=== PATIENT | male | born 1950 | race Caucasian/White ===

== ENCOUNTER → 2016-07-10 | Outpatient (CLI) | payer BC, OTHER ==
[2016-03-19 14:32] VITALS: BP 107/55
--- NOTE | 2016-07-11 07:35 | RAD ---
HISTORY: Malignant neoplasm sigmoid colon Study: Skeletal survey Comparison: None Findings: The bones are generally well mineralized. No spinal compression fractures are identified. No definit e lytic or blastic lesions are identified. There is no evidence for endosteal scalloping in the clav icles, ribs, or long bones. No lytic or blastic calvarial lesions are identified. There is a caval f ilter present. IMPRESSION: No definite evidence for visible lytic or blastic bony metastatic disease. Nuclear medicine bone sca n may be of further diagnostic value. Reported By:
== END ==
LOC: RAD 10:44
PROVIDERS: ATTEND Internal Medicine Hematology & Oncology
DX: R31.9 Hematuria, unspecified (principal); I26.99 Other pulmonary embolism without acute cor pulmonale; D50.8 Other iron deficiency anemias; C18.7 Malignant neoplasm of sigmoid colon
CPT/HCPCS: 77075

== ENCOUNTER 2016-12-20 14:15 | Emergency (ER) | payer BC, OTHER ==
[2016-12-20 14:26] VITALS: BP 111/59; BMI 43.1
[2016-12-20] MEDS ORDERED: ZOFRAN TAB 4 MG PO ONE (14:35)
[2016-12-20] MEDS ORDERED: ZOFRAN TAB 4 MG ONE (14:36)
--- NOTE | 2016-12-20 14:36 | DR.CP ---
HPI - Time Seen Time seen: 14:25 - Complaint Chief Complaint Doctor Comments: Patient states that he was outside cutting the yard, had an episode of chest zelaya very short duration. Later on had tingling in the left upper extremity. He had a bladder scraping procedure to remove a lesion one week ago. Admits to hematuria. Chief Complaint:: "CHEST PAIN THIS AM THAT STOPPED WITHIN A COUPLE OF HOURS HAS HAD WEEKNESS FOR TWO WEEKS NOW AND PEEING BLOOD" - Source History Provided: Patient - Mode of Arrival Mode of Arrival: EMS - Timing Onset of Chief Complaint: 12/10/16 - Associated Signs and Symptoms Associated Signs and Symptoms: Shortness of Breath PMH - PMH Past Medical History: Yes Past Medical History: GERD Past Medical History Comment: CANCER Past Surgical History: Yes Surgical History: Ortho Surgery Past Surgical History Comment: RADHA IN LEFT LEG, COLON CANCER, CLOSTOMY REVERSED , ABDOMEN SURGERY - Family History History of Family Medical Conditions: Yes Family Medical History: Coronary Artery Disease, Heart Failure - Social History Does patient currently use any type of tobacco product: No Have you used tobacco products in the last 12 months: No Type of Tobacco Use: Cigarettes How many years tobacco product used: 50 Does any household member use tobacco: No Alcohol Use: None Do you use any recreational Drugs:: No Lives With: Family Lives Where: Home - infectious screening In the last 2 months have you had wt loss of >10#?: NO Have you had fever, night sweats or hemotysis?: No Have you traveled outside the country in the last 6 months?: No Isolation: Standard ROS - Review of Systems Eyes: No Symptoms Reported ENTM: No Symptoms Reported Respiratoy: No Symptoms Reported Cardiovascular: No Symptoms Reported Gastrointestinal/Abdominal: No Symptoms Reported Genitourinary: No Symptoms Reported Neurological: No Symptoms Reported Musculoskeletal: No Symptoms Reported Integumentary: No Symptoms Reported Hematologic/Lymphatic: No Symptoms Reported Endocrine: No Symptoms Reported Psychiatric: No Symptoms Reported All Other Systems: Reviewed and Negative PE - Vitals Vitals: Temperature 97.6 F Pulse Rate 72 Respiratory Rate 18 Blood Pressure [Left Arm] 145/91 Blood Pressure 111/59 O2 Sat by Pulse Oximetry 100 - General Limitations: No Limitations General Appearance: Alert, In No Apparent Distress - Head Head Exam: Normal Inspection, Atraumatic - Eyes Eye exam: Normal Appearance, PERRL, EOMI - ENT ENT Exam: Normal Exam - Chest Chest Inspection: Normal Inspection - Respiratory Respiratory Exam: Normal Lung Sounds Bilat Respiratory Exam: Bilateral Clear to Auscultation - Cardiovascular Cardiovascular Exam: Regular Rate Pulse: Normal, Radial, Femoral Edema: Normal - Abdominal Exam Abdominal Exam: Normal Inspection Abdominal Tenderness: negative: RUQ, RLQ, LUQ, LLQ, Epigastrium, Suprapubic, Diffuse, Mild, Moderate, Severe, Other - Extremities Extremities Exam: Normal Inspection - Back Back Exam: Normal Inspection, Full ROM - Neurologic Neurological Exam: Alert, Oriented X3, CN II-XII Intact - Psychiatric Psychiatric Exam: Normal Affect - Skin Skin Exam: Warm, Dry, Intact Course - Reevaluation 1st: Improved ROR - Labs Reviewed Result Diagrams: 12/20/16 14:44 12/20/16 14:44 Laboratory: WBC 9.4 X10^3/uL (3.6-10.0) 12/20/16 14:44 RBC 3.24 X10^6/uL (4.7-6.0) L 12/20/16 14:44 Hgb 9.3 g/dL (13.5-18.0) L 12/20/16 14:44 Hct 27.5 % (42.0-54.0) L 12/20/16 14:44 MCV 84.7 fL (80.0-100.0) 12/20/16 14:44 MCH 28.8 pg (27.0-34.0) 12/20/16 14:44 MCHC 34.0 g/dL (33.0-35.0) 12/20/16 14:44 RDW 14.0 % (11.6-16.5) 12/20/16 14:44 Plt Count 256 X10^3/uL (150.0-450.0) 12/20/16 14:44 MPV 9.2 fL (7.4-11.0) 12/20/16 14:44 Neut % 71.9 % (42.0-75.0) 12/20/16 14:44 Lymph % 17.5 % (21.0-51.0) L 12/20/16 14:44 [place] % 6.6 % (0.0-13.0) 12/20/16 14:44 Eos % 2.7 % (0.9-2.9) 12/20/16 14:44 Baso % 1.3 % (0.2-1.0) H 12/20/16 14:44 Neut # 6.8 x10^3/uL (2.2-4.8) H 12/20/16 14:44 Lymph # 1.7 X10^3/uL (1.3-2.9) 12/20/16 14:44 [place] # 0.6 x10^3/uL (0.3-0.8) 12/20/16 14:44 Eos # 0.3 x10^3/uL (0.0-0.2) H 12/20/16 14:44 Baso # 0.1 X10^3/uL (0.0-0.1) 12/20/16 14:44 Absolute Nucleated RBC 0.1 /100WBC 12/20/16 14:44 INR Target Range - 12/20/16 14:44 INR 1.15 (0.8-1.3) 12/20/16 14:44 Sodium 137 mmol/L (136-145) 12/20/16 14:44 Corrected Sodium TNP 12/20/16 14:44 Potassium 4.5 mmol/L (3.5-5.1) 12/20/16 14:44 Chloride 102 mmol/L (98-107) 12/20/16 14:44 Carbon Dioxide 26.1 mmol/L (21-32) 12/20/16 14:44 BUN 19 mg/dL (7-18) H 12/20/16 14:44 Creatinine 1.32 mg/dL (0.70-1.30) H 12/20/16 14:44 Est GFR (MDRD) Af Amer > 60 (>60) 12/20/16 14:44 Est GFR (MDRD) Non-Af 58 (>60) L 12/20/16 14:44 Glucose 99 mg/dL (65-99) 12/20/16 14:44 Calcium 8.5 mg/dL (8.5-10.1) 12/20/16 14:44 Corrected Calcium 9.5 mg/dL (8.5-10.1) 12/20/16 14:44 Magnesium 2.1 mg/dL (1.7-2.9) 12/20/16 14:44 Total Bilirubin 0.20 mg/dL (0.2-1.0) 12/20/16 14:44 AST 22 Units/L (15-37) 12/20/16 14:44 ALT 18 Units/L (12-78) 12/20/16 14:44 Alkaline Phosphatase 96 Units/L (46-116) 12/20/16 14:44 Creatine Kinase 87 Units/L (39-308) 12/20/16 14:44 CK-MB (CK-2) < 1.0 ng/mL (0-4.0) 12/20/16 14:44 CK/CKMB % Calc 1.2 % (<4) 12/20/16 14:44 Troponin I < 0.02 ng/mL (0-1.5) 12/20/16 14:44 Total Protein 7.2 g/dL (6.4-8.2) 12/20/16 14:44 Albumin 2.7 g/dL (3.4-5.0) L 12/20/16 14:44 Globulin 4.5 g/dL (2.5-4.5) 12/20/16 14:44 Albumin/Globulin Ratio 0.6 Ratio (1.1-2.1) L 12/20/16 14:44 Specimen Type Cancelled 12/20/16 16:12 Urine Color Cancelled 12/20/16 16:12 Urine Appearance Cancelled 12/20/16 16:12 Urine pH Cancelled 12/20/16 16:12 Ur Specific [place] Cancelled 12/20/16 16:12 Urine Protein Cancelled 12/20/16 16:12 Urine Glucose (UA) Cancelled 12/20/16 16:12 Urine Ketones Cancelled 12/20/16 16:12 Urine Occult Blood Cancelled 12/20/16 16:12 Urine Nitrite Cancelled 12/20/16 16:12 Urine Bilirubin Cancelled 12/20/16 16:12 Urine Urobilinogen Cancelled 12/20/16 16:12 Ur Leukocyte Esterase Cancelled 12/20/16 16:12 Urine RBC Cancelled 12/20/16 16:12 Urine WBC Cancelled 12/20/16 16:12 Urine WBC Clumps Cancelled 12/20/16 16:12 Ur Squamous Epith Cells Cancelled 12/20/16 16:12 Ur Transition Epith Cell Cancelled 12/20/16 16:12 Ur Renal Epithelial Cell Cancelled 12/20/16 16:12 Calcium Oxalate Crystal Cancelled 12/20/16 16:12 Cystine Crystals Cancelled 12/20/16 16:12 Uric Acid Crystals Cancelled 12/20/16 16:12 Triple Phos Crystals Cancelled 12/20/16 16:12 Tyrosine Crystals Cancelled 12/20/16 16:12 Other Crystals Cancelled 12/20/16 16:12 Amorphous Sediment Cancelled 12/20/16 16:12 Urine Bacteria Cancelled 12/20/16 16:12 Hyaline Casts Cancelled 12/20/16 16:12 Granular Casts Cancelled 12/20/16 16:12 Fine Granular Casts Cancelled 12/20/16 16:12 Coarse Granular Casts Cancelled 12/20/16 16:12 RBC Casts Cancelled 12/20/16 16:12 WBC Casts Cancelled 12/20/16 16:12 Other Casts Cancelled 12/20/16 16:12 Urine Mucus Cancelled 12/20/16 16:12 Urine Trichomonas Cancelled 12/20/16 16:12 Urine Yeast Cancelled 12/20/16 16:12 Urine Sperm Cancelled 12/20/16 16:12 Ur Culture Indicated? Cancelled 12/20/16 16:12 Micro UA Comment Cancelled 12/20/16 16:12 - Diagnosis Discharge Problem: Painless hematuria Exhaustion due to overexertion Qualifiers: Encounter type: initial encounter Qualified Code(s): T73.3XXA - Exhaustion due to excessive exertion, initial encounter - Discharge Plan Condition: Stable - Follow ups/Referrals Follow ups/Referrals: Garfield [facility] [Primary Care Provider] - 3 days - Instructions
[2016-12-20 14:54] LABS: BASOPHILS # (AUTO) 0.1 X10^3/uL (0.0-0.1); BASOPHILS % (AUTO) 1.3 % (0.2-1.0); EOSINOPHILS # (AUTO) 0.3 x10^3/uL (0.0-0.2); EOSINOPHILS % (AUTO) 2.7 % (0.9-2.9); HEMATOCRIT 27.5 % (42.0-54.0); HEMOGLOBIN 9.3 g/dL (13.5-18.0); LYMPHOCYTES # (AUTO) 1.7 X10^3/uL (1.3-2.9); LYMPHOCYTES % (AUTO) 17.5 % (21.0-51.0); MEAN CORPUSCULAR HEMOGLOBIN 28.8 pg (27.0-34.0); MEAN CORPUSCULAR VOLUME 84.7 fL (80.0-100.0); MEAN PLATELET VOLUME 9.2 fL (7.4-11.0); MONOCYTES # (AUTO) 0.6 x10^3/uL (0.3-0.8); MONOCYTES % (AUTO) 6.6 % (0.0-13.0); NEUTROPHILS # (AUTO) 6.8 x10^3/uL (2.2-4.8); NEUTROPHILS % (AUTO) 71.9 % (42.0-75.0); PLATELET COUNT 256 X10^3/uL (150.0-450.0); RED BLOOD COUNT 3.24 X10^6/uL (4.7-6.0); WHITE BLOOD COUNT 9.4 X10^3/uL (3.6-10.0)
[2016-12-20 15:15] LABS: BLOOD UREA NITROGEN 19 mg/dL (7-18); CALCIUM 8.5 mg/dL (8.5-10.1); CARBON DIOXIDE 26.1 mmol/L (21-32); CHLORIDE 102 mmol/L (98-107); CREATININE 1.32 mg/dL (0.70-1.30); SODIUM 137 mmol/L (136-145); TROPONIN I < 0.02 ng/mL (0-1.5); eGFR BLACK RACES > 60 (>60); eGFR NON BLACK RACES 58 (>60)
[2016-12-20 15:19] LABS: ALANINE AMINOTRANSFERASE 18 Units/L (12-78); ALBUMIN 2.7 g/dL (3.4-5.0); ALKALINE PHOSPHATASE 96 Units/L (46-116); ASPARTATE AMINO TRANSFERASE 22 Units/L (15-37); CKMB % 1.2 % (<4); COR CA(FOR HYPOALB) 9.5 mg/dL (8.5-10.1); CREATINE KINASE 87 Units/L (39-308); CREATINE KINASE MB < 1.0 ng/mL (0-4.0); MAGNESIUM 2.1 mg/dL (1.7-2.9); TOTAL PROTEIN 7.2 g/dL (6.4-8.2)
[2016-12-20 16:41] LABS: APPEARANCE,URINE TURBID (CLEAR); BACTERIA,URINE 2+ /HPF (Negative); COLOR,URINE BLOODY (YELLOW); RBC,URINE TNTC /HPF (NEGATIVE); SQUAMOUS EPITHELIAL CELL,UR RARE /HPF (NEGATIVE)
--- NOTE | 2016-12-20 20:18 | RAD ---
HISTORY: Chest pain Study: Chest AP portable Comparison: 09/06/2014 Findings: The trachea is midline. The cardiac silhouette is mildly enlarged. No congestive heart failure is no aylin.. The lungs are clear without focal infiltrate or effusion. The bony thorax is unremarkable. IMPRESSION: 1. Mild cardiomegaly without congestive heart failure 2. Lungs clear Reported By:
== END 2016-12-20 16:53 | disposition home or self-care (01) ==
LOC: ER 14:25
DX: R31.9 Hematuria, unspecified (principal); T73.3XXA Exhaustion due to excessive exertion, initial encounter
CPT/HCPCS: 36415; 71010; 80053; 81015; 82550; 82553; 83735; 84484; 85025; 85610; 87086; 93005; 93010; 99283; S0181

== ENCOUNTER → 2017-05-02 | Outpatient (CLI) | payer OTHER ==
[~2017-05-02] MED LIST: NS 100 ML IV 100 ML IV ONE
[2017-05-02 09:40] LABS: CREATININE 1.27 mg/dL (0.70-1.30)
--- NOTE | 2017-05-03 11:31 | CT ---
CT chest, abdomen and pelvis with contrast Indication: History of colon and bladder cancer, restaging Technique: Helical CT images of the chest, abdomen and pelvis were obtained with IV contrast. Reforma tted images in the coronal and sagittal planes were also generated for review. Comparison: CT chest 03/30/2015, CT abdomen and pelvis 03/19/16 Findings: Chest: The heart is mildly enlarged without significant pericardial effusion. The thoracic aorta is n ormal in contour and caliber. The central airways are patent. There is no mediastinal or hilar lympha denopathy. Calcified right lower lobe granuloma is noted. The lungs are otherwise clear without focal consolidation or suspicious pulmonary nodule/mass. No pleural effusion or pneumothorax is identified . Abdomen/pelvis: The liver, gallbladder, pancreas, adrenals and kidneys are unremarkable. 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 Partial colectomy with bowel anastomosis at the splenic flexure noted. No discrete nodule or mass les ion is identified at the anastomosis or elsewhere within the GI tract to suggest residual or recurren t disease. There is diverticulosis of the sigmoid colon without evidence of acute inflammation. There is moderate diastasis recti with bulging of multiple nonobstructed bowel loops through the defect. An IVC filter is present. The abdominal aorta, urinary bladder and prostate are normal. No free air, free fluid or lymphadenopathy is identified. Intramedullary nail within the proximal left femur is noted. No acute or aggressive osseous abnormali ty is identified. Impression: No current evidence of residual or recurrent neoplasm or metastatic disease within the chest, abdomen or pelvis. Moderate diastasis recti, colonic diverticulosis and additional findings, as above. Reported By:
== END ==
LOC: RAD 09:14
PROVIDERS: ATTEND Internal Medicine Hematology & Oncology
DX: D47.2 Monoclonal gammopathy (principal); R31.9 Hematuria, unspecified; I26.99 Other pulmonary embolism without acute cor pulmonale; D50.9 Iron deficiency anemia, unspecified; C18.7 Malignant neoplasm of sigmoid colon
CPT/HCPCS: 36415; 71260; 74177; 82565; 84520; A4222

== ENCOUNTER 2017-06-30 13:10 | Emergency (ER) | payer OTHER ==
[2017-06-30 13:15] VITALS: BP 143/83; BMI 49.9
--- NOTE | 2017-06-30 14:08 | DR.EXTPAIN ---
HPI - Time seen Time seen: 13:45 - PCP Primary Care Physician: ISHAN - Complaint/Symptoms Chief Complaint:: PT C/O LT ANKLE PAIN AND SWELLING. PT STATES HE DOESN'T KNOW WHAT HAPPENED TO HIS ANKLE BUT IT STARTED HURTING HIM YESTERDAY AND THE SWELLING HAS GOTTEN WORSE. PT STATES THAT HE HAS A HISTORY OF BLOOD CLOTS IN HIS LEGS AND IN HIS LUNGS - Nurses notes reviewed Nurses Notes Review: Yes - Source History Provided: Patient - Mode of arrival Mode of Arrival: Ambulatory - Timing Onset of Chief Complaint: 06/29/17 - Associated signs and symptoms Associated Signs and Symptoms: Pain, Other - Other history Other History: hx DVT with subsequent PE. Off Xarelto x 3 mos due to procedures for bladder CA. PMH - PMH Past Medical History: Yes Past Medical History: GERD Past Medical History Comment: DVT AND PE, BLADDER CA Past Surgical History: Yes Surgical History: Ortho Surgery Past Surgical History Comment: CYSTOSCOPY - Family History History of Family Medical Conditions: Yes Family Medical History: Coronary Artery Disease, Heart Failure - Social History Does any household member use tobacco: No Alcohol Use: None Do you use any recreational Drugs:: No Lives With: Family Lives Where: Home - infectious screening In the last 2 months have you had wt loss of >10#?: NO Have you had fever, night sweats or hemotysis?: No Have you traveled outside the country in the last 6 months?: No Isolation: Standard ROS - Review of Systems Constitutional: No Symptoms Reported Eyes: No Symptoms Reported ENTM: No Symptoms Reported Respiratoy: No Symptoms Reported. negative: Short of Breath Cardiovascular: No Symptoms Reported Gastrointestinal/Abdominal: No Symptoms Reported Genitourinary: No Symptoms Reported Neurological: No Symptoms Reported Musculoskeletal: Joint Pain, Joint Swelling, Left, Ankle Integumentary: No Symptoms Reported Endocrine: No Symptoms Reported Psychiatric: No Symptoms Reported All Other Systems: Reviewed and Negative PE - Vital Signs Vitals: Temperature 97.1 F Pulse Rate 65 Respiratory Rate 20 Blood Pressure [Left Arm] 145/91 Blood Pressure 143/83 O2 Sat by Pulse Oximetry 98 - General Limitations: No Limitations General Appearance: Alert, In No Apparent Distress - Head Head Exam: Normal Inspection - Eyes Eye exam: Normal Appearance - ENT ENT Exam: Normal Exam - Neck Neck Exam: Normal Inspection, Trachea Midline - Respiratory Respiratory Exam: Normal Lung Sounds Bilat Respiratory Exam: Bilateral Clear to Auscultation - Cardiovascular Cardiovascular Exam: Regular Rate, Normal Rhythm, Normal Heart Sounds - Abdominal Exam Abdominal Exam: Normal Inspection, Normal Bowel Sounds, Soft - Extremities Extremities Exam: Tenderness, Joint Swelling - Lower Extremities Ankle Exam: Full ROM, Tenderness, Swelling. negative: Abrasion, Laceration, Ecchymosis, Deformity, Crepitus, Dislocation, Erythema, Tenderness over talofibular lig, Anterior Draw Sign ROR - XRAY XRAY Interpreted by: Radiologist XRAY Findings: neg acute Xray, negastive US for DVT - Diagnosis Discharge Problem: Left ankle sprain - Discharge Plan Disposition: 01 HOME, SELF-CARE Condition: Stable - Follow ups/Referrals Follow ups/Referrals: ARNOLDO OLMSTEAD V [Primary Care Provider] - 3 days - Instructions Instructions: ASHLEY for Routine Care of Injuries, [id number] Additional Notes - Additional Notes Additional Notes: Pt relates near the end of the visit that he has had IVC placed
--- NOTE | 2017-06-30 14:09 | RAD ---
HISTORY: Left ankle pain and swelling. Onset of symptoms yesterday. Patient has history of blood ubaldo ts in his legs and in his lungs. Study: Three-view left ankle Comparison: No priors Findings: There is generalized soft tissue swelling involving the ankle and visualized calf region. No fracture or dislocation is seen. Ankle mortise is well maintained. Large posterior calcaneal spur seen at the level of the insertion of plantar fascia. Degenerative changes present involving tarsal joints. IMPRESSION: Soft tissue swelling without fracture or dislocation. Reported By:
--- NOTE | 2017-06-30 16:39 | VAS ---
VENOUS ULTRASOUND DOPPLER EXAMINATION OF THE LEFT LOWER EXTREMITY HISTORY: Leg pain Comparison: None TECHNIQUE: Multiple mohan scale and color flow Doppler images of the deep venous system were obtained of the left lower extremity. FINDINGS: The deep venous system of the left lower extremity was evaluated from the level of the common femoral vein through the popliteal vein. Normal color flow and augmentation can be observed. In addition, normal compression is seen throughout the deep venous system. IMPRESSION: 1. Negative for DVT. Reported By:
== END 2017-06-30 16:36 | disposition home or self-care (01) ==
LOC: ER 13:24
DX: S93.402A Sprain of unspecified ligament of left ankle, initial encounter (principal); Y33.XXXA Other specified events, undetermined intent, initial encounter
CPT/HCPCS: 29540; 36415; 73610; 85378; 93971; 99282

== ENCOUNTER 2023-06-01 07:55 | Inpatient (IN) ==
[2023-06-01] MEDS ORDERED: DILAUDID INJ IVP PRN (09:13)
--- NOTE | 2023-06-01 09:28 | EKG ---
Test Reason : pre-op Blood Pressure : */* mmHG Vent. Rate : 99 BPM Atrial Rate : * BPM P-R Int : * ms QRS Dur : 82 ms QT Int : 310 ms P-R-T Axes : * -44 -5 degrees QTc Int : 397 ms Atrial fibrillation Left axis deviation Abnormal ECG When compared with ECG of 06-SEP-2022 10:38, Criteria for Anterior infarct are no longer present Confirmed by Paulo Gerber MD ([id number]) on 06/01/2023 11:14:13 AM Referred By: Confirmed By: Paulo Gerber MD
[2023-06-01 09:35] VITALS: BMI 43.9
[2023-06-01 09:49] LABS: BASOPHILS # (AUTO) 0.1 X10^3/uL (0.0-0.1); MONOCYTES # (AUTO) 0.8 x10^3/uL (0.3-0.8)
[2023-06-01 09:52] LABS: BASOPHILS % (AUTO) 0.7 % (0.2-1.0); EOSINOPHILS # (AUTO) 0.2 x10^3/uL (0.0-0.2); EOSINOPHILS % (AUTO) 2.9 % (0.9-2.9); HEMATOCRIT 35.9 % (42.0-54.0); HEMOGLOBIN 11.8 g/dL (13.5-18.0); LYMPHOCYTES # (AUTO) 1.1 X10^3/uL (1.3-2.9); LYMPHOCYTES % (AUTO) 13.1 % (21.0-51.0); MEAN CORPUSCULAR HEMOGLOBIN 29.3 pg (27.0-34.0); MEAN CORPUSCULAR VOLUME 88.7 fL (80.0-100.0); MEAN PLATELET VOLUME 8.5 fL (7.4-11.0); MONOCYTES % (AUTO) 9.6 % (0.0-13.0); NEUTROPHILS # (AUTO) 6.3 x10^3/uL (2.2-4.8); NEUTROPHILS % (AUTO) 73.7 % (42.0-75.0); PLATELET COUNT 350 X10^3/uL (150.0-450.0); RED BLOOD COUNT 4.05 X10^6/uL (4.7-6.0); RED CELL DISTRIBUTION WIDTH 15.2 % (11.6-16.5); WHITE BLOOD COUNT 8.5 X10^3/uL (3.6-10.0)
[2023-06-01] MEDS: DIFLUCAN 200 MG IV PREMIX* 200 MG/100 ML BAG IV SCH (09:56)
[2023-06-01] MEDS: D5 1/2 NS 1,000 ML 1,000 ML IV SCH (09:56)
[2023-06-01] MEDS: ZOSYN VIAL 3.375 GRAMS 3.375 G in NS 100 ML IV 100 ML IV SCH (09:57)
[2023-06-01] MEDS: NS 250 ML IV 250 ML IV ONE (09:57)
[2023-06-01 10:00] LABS: ALANINE AMINOTRANSFERASE 13 Units/L (12-78); ALBUMIN 1.6 g/dL (3.4-5.0); ALKALINE PHOSPHATASE 110 Units/L (46-116); ASPARTATE AMINO TRANSFERASE 29 Units/L (15-37); BLOOD UREA NITROGEN 17 mg/dL (7-18); CALCIUM 8.2 mg/dL (8.5-10.1); CARBON DIOXIDE 30.6 mmol/L (21-32); CHLORIDE 103 mmol/L (98-107); COR CA(FOR HYPOALB) 10.1 mg/dL (8.5-10.1); GLUCOSE 93 mg/dL (65-99); POTASSIUM 4.3 mmol/L (3.5-5.1); SODIUM 137 mmol/L (136-145); TOTAL PROTEIN 7.5 g/dL (6.4-8.2); eGFR NON BLACK RACES > 60 (>60)
[2023-06-01] MEDS ORDERED: NS 250 ML IV 250 ML IV PRN (10:03)
--- NOTE | 2023-06-01 10:16 | RAD ---
EXAM:CHEST, 1 VIEWHISTORY:PRE-OP FOR ABD WALL ABCESS, INCARCERATED HERNIA;COMPARISON:September 06, 2022TECHNIQUE:FINDINGS:Heart size and mediastinal contours are normal. Lungs are clear as are the pleural spaces. No free air or pneumothorax. No acute bony abnormality.IMPRESSION:No acute radiographic abnormalities of the chestTHIS IS AN ELECTRONICALLY VERIFIED FINAL REPORT06/01/2023 10:13 AM - Electronically signed by Brandon Cortez MD
[2023-06-01] MEDS: VERSED ONE (10:36)
[2023-06-01] MEDS: DIPRIVAN VIAL 20 ML ONE (10:37)
[2023-06-01] MEDS: FENTANYL VIAL INJ 100 mcg ONE (10:37)
[2023-06-01] MEDS: LR 1,000 ML IV 1,000 ML IV ONE (10:40)
[2023-06-01] MEDS: POLYMYXIN B SULFATE ONE (10:44)
[2023-06-01] MEDS: BETADINE SOLN ONE (10:44)
[2023-06-01] MEDS: XYLOCAINE 1 % (PLAIN) ONE (10:52)
[2023-06-01] MEDS: KETAMINE 50 MG/5 ML-NACL SYRNG ONE (11:02)
[2023-06-01] MEDS: NORCO 5/325 MG TAB PO PRN (16:01)
[2023-06-02 05:36] LABS: BASOPHILS # (AUTO) 0.1 X10^3/uL (0.0-0.1); BASOPHILS % (AUTO) 1.3 % (0.2-1.0); EOSINOPHILS # (AUTO) 0.6 x10^3/uL (0.0-0.2); EOSINOPHILS % (AUTO) 8.2 % (0.9-2.9); HEMATOCRIT 34.2 % (42.0-54.0); HEMOGLOBIN 11.4 g/dL (13.5-18.0); LYMPHOCYTES # (AUTO) 1.5 X10^3/uL (1.3-2.9); LYMPHOCYTES % (AUTO) 21.1 % (21.0-51.0); MEAN CORPUSCULAR HEMOGLOBIN 29.3 pg (27.0-34.0); MEAN CORPUSCULAR HGB CONC 33.2 g/dL (33.0-35.0); MEAN CORPUSCULAR VOLUME 88.2 fL (80.0-100.0); MEAN PLATELET VOLUME 9.4 fL (7.4-11.0); MONOCYTES # (AUTO) 0.6 x10^3/uL (0.3-0.8); MONOCYTES % (AUTO) 8.5 % (0.0-13.0); NEUTROPHILS # (AUTO) 4.2 x10^3/uL (2.2-4.8); NEUTROPHILS % (AUTO) 60.9 % (42.0-75.0); PLATELET COUNT 415 X10^3/uL (150.0-450.0); RED BLOOD COUNT 3.88 X10^6/uL (4.7-6.0); RED CELL DISTRIBUTION WIDTH 15.2 % (11.6-16.5); WHITE BLOOD COUNT 6.9 X10^3/uL (3.6-10.0)
[2023-06-02 05:52] LABS: ALANINE AMINOTRANSFERASE 14 Units/L (12-78); ALBUMIN 1.5 g/dL (3.4-5.0); ALKALINE PHOSPHATASE 101 Units/L (46-116); ASPARTATE AMINO TRANSFERASE 22 Units/L (15-37); BLOOD UREA NITROGEN 14 mg/dL (7-18); CARBON DIOXIDE 30.1 mmol/L (21-32); CHLORIDE 106 mmol/L (98-107); CREATININE 0.85 mg/dL (0.70-1.30); GLUCOSE 95 mg/dL (65-99); POTASSIUM 3.8 mmol/L (3.5-5.1); SODIUM 140 mmol/L (136-145); eGFR NON BLACK RACES > 60 (>60)
[2023-06-02] MEDS ORDERED: CONSULT PHARMACY - POTASSIUM & MAGNESIUM XX SCH ×2 (07:00)
[2023-06-02] MEDS: K-DUR TAB 20 MEQ PO SCH (08:56)
--- NOTE | 2023-06-02 08:57 | DR.PROGNOT ---
HOSPITAL PROGRESS NOTE Progress Note for Day of: Progress Note Date: 06/02/23 Chief Complaint Chief Complaint: no new c/o . moderate drainage from abscess site . more fistula drainage now in colostomy bag .. WBC , BUN ,Creat . LFT all normal . afebrile .. Past Medical Family Social History Allergies: Allergies adhesive tape Allergy (Verified 05/31/23 14:51) latex Allergy (Verified 05/31/23 14:51) lorazepam [From Ativan] Allergy (Verified 05/31/23 14:51) Vital Signs Vital Signs: Vital Signs Temperature 98.2 F Temperature 97.5 F Pulse Rate [Right Brachial] 83 Pulse Rate [Right Brachial] 103 Respiratory Rate 20 Respiratory Rate 20 Blood Pressure [Right Arm] 121/85 Blood Pressure [Right Arm] 120/75 O2 Sat by Pulse Oximetry 94 O2 Sat by Pulse Oximetry 95 Physical Exam Oriented: Normal Eyes: Normal Throat: Normal Respiratory: Normal Cardiovascular: Normal GI:Auscultation: Normal GI:Palpation: Normal GI: Tenderness: Other (soft,flat none tender abdomen , BS+) Speech Pattern: Clear and Appropriate Laboratory and Diagnostics 06/02/23 04:17 06/02/23 04:17 Labs: 06/01/23 11:14 Abdomen Wound Gram Stain - Final 06/01/23 09:18 Abdomen Wound Gram Stain - Final Laboratory WBC 6.9 X10^3/uL (3.6-10.0) 06/02/23 04:17 RBC 3.88 X10^6/uL (4.7-6.0) L 06/02/23 04:17 Hgb 11.4 g/dL (13.5-18.0) L 06/02/23 04:17 Hct 34.2 % (42.0-54.0) L 06/02/23 04:17 MCV 88.2 fL (80.0-100.0) 06/02/23 04:17 MCH 29.3 pg (27.0-34.0) 06/02/23 04:17 MCHC 33.2 g/dL (33.0-35.0) 06/02/23 04:17 RDW 15.2 % (11.6-16.5) 06/02/23 04:17 Plt Count 415 X10^3/uL (150.0-450.0) 06/02/23 04:17 MPV 9.4 fL (7.4-11.0) 06/02/23 04:17 Neut % (Auto) 60.9 % (42.0-75.0) 06/02/23 04:17 Lymph % (Auto) 21.1 % (21.0-51.0) 06/02/23 04:17 [place] % (Auto) 8.5 % (0.0-13.0) 06/02/23 04:17 Eos % (Auto) 8.2 % (0.9-2.9) H 06/02/23 04:17 Baso % (Auto) 1.3 % (0.2-1.0) H 06/02/23 04:17 Neut # (Auto) 4.2 x10^3/uL (2.2-4.8) 06/02/23 04:17 Lymph # (Auto) 1.5 X10^3/uL (1.3-2.9) 06/02/23 04:17 [place] # (Auto) 0.6 x10^3/uL (0.3-0.8) 06/02/23 04:17 Eos # (Auto) 0.6 x10^3/uL (0.0-0.2) H 06/02/23 04:17 Baso # (Auto) 0.1 X10^3/uL (0.0-0.1) 06/02/23 04:17 Absolute Nucleated RBC 0.1 /100WBC 06/02/23 04:17 Sodium 140 mmol/L (136-145) 06/02/23 04:17 Corrected Sodium TNP 06/02/23 04:17 Potassium 3.8 mmol/L (3.5-5.1) 06/02/23 04:17 Chloride 106 mmol/L (98-107) 06/02/23 04:17 Carbon Dioxide 30.1 mmol/L (21-32) 06/02/23 04:17 BUN 14 mg/dL (7-18) 06/02/23 04:17 Creatinine 0.85 mg/dL (0.70-1.30) 06/02/23 04:17 Est GFR (MDRD) Af Amer > 60 (>60) 06/02/23 04:17 Est GFR (MDRD) Non-Af > 60 (>60) 06/02/23 04:17 Glucose 95 mg/dL (65-99) 06/02/23 04:17 Calcium 8.0 mg/dL (8.5-10.1) L 06/02/23 04:17 Corrected Calcium 10.0 mg/dL (8.5-10.1) 06/02/23 04:17 Total Bilirubin 0.30 mg/dL (0.2-1.0) 06/02/23 04:17 AST 22 Units/L (15-37) 06/02/23 04:17 ALT 14 Units/L (12-78) 06/02/23 04:17 Alkaline Phosphatase 101 Units/L (46-116) 06/02/23 04:17 Total Protein 7.0 g/dL (6.4-8.2) 06/02/23 04:17 Albumin 1.5 g/dL (3.4-5.0) L 06/02/23 04:17 Globulin 5.5 g/dL (2.5-4.5) H 06/02/23 04:17 Albumin/Globulin Ratio 0.3 Ratio (1.1-2.1) L 06/02/23 04:17 Assessment and Plan 1: abdominal wall abscess . on IV ABT , local care .. 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 5: morbid obesity .
[2023-06-03 05:44] LABS: BASOPHILS # (AUTO) 0.1 X10^3/uL (0.0-0.1); BASOPHILS % (AUTO) 1.6 % (0.2-1.0); EOSINOPHILS # (AUTO) 0.5 x10^3/uL (0.0-0.2); EOSINOPHILS % (AUTO) 9.1 % (0.9-2.9); HEMATOCRIT 36.7 % (42.0-54.0); HEMOGLOBIN 12.1 g/dL (13.5-18.0); LYMPHOCYTES # (AUTO) 1.5 X10^3/uL (1.3-2.9); LYMPHOCYTES % (AUTO) 26.2 % (21.0-51.0); MEAN CORPUSCULAR HEMOGLOBIN 29.2 pg (27.0-34.0); MEAN CORPUSCULAR HGB CONC 32.8 g/dL (33.0-35.0); MEAN CORPUSCULAR VOLUME 88.8 fL (80.0-100.0); MEAN PLATELET VOLUME 8.3 fL (7.4-11.0); MONOCYTES # (AUTO) 0.7 x10^3/uL (0.3-0.8); MONOCYTES % (AUTO) 11.1 % (0.0-13.0); NEUTROPHILS # (AUTO) 3.1 x10^3/uL (2.2-4.8); PLATELET COUNT 462 X10^3/uL (150.0-450.0); RED BLOOD COUNT 4.14 X10^6/uL (4.7-6.0); RED CELL DISTRIBUTION WIDTH 15.3 % (11.6-16.5); WHITE BLOOD COUNT 5.9 X10^3/uL (3.6-10.0)
[2023-06-03 05:53] LABS: ALANINE AMINOTRANSFERASE 17 Units/L (12-78); ALBUMIN 1.7 g/dL (3.4-5.0); ALKALINE PHOSPHATASE 105 Units/L (46-116); ASPARTATE AMINO TRANSFERASE 22 Units/L (15-37); BLOOD UREA NITROGEN 14 mg/dL (7-18); CALCIUM 8.3 mg/dL (8.5-10.1); CARBON DIOXIDE 30.7 mmol/L (21-32); CHLORIDE 106 mmol/L (98-107); COR CA(FOR HYPOALB) 10.1 mg/dL (8.5-10.1); CREATININE 1.01 mg/dL (0.70-1.30); GLUCOSE 95 mg/dL (65-99); MAGNESIUM 2.1 mg/dL (2.0-2.9); SODIUM 143 mmol/L (136-145); TOTAL PROTEIN 7.5 g/dL (6.4-8.2); eGFR NON BLACK RACES > 60 (>60)
[2023-06-03] MEDS ORDERED: PHARMACY CONSULT - VANCOMYCIN XX SCH (11:00)
[2023-06-03] MEDS ORDERED: VANCOMYCIN IV *PREMIX 1 G/200 ML BAG 1 G/200 ML PIGGYBACK IV SCH (12:00)
[2023-06-03] MEDS: TYGACIL 50 MG VIAL 100 MG in NS 100 ML IV 100 ML IV ONE (12:00)
[2023-06-03] MEDS: VANCOMYCIN IV *PREMIX 1.25 G/250 ML BAG 1.25 G/250 ML PIGGYBACK IV SCH (13:00)
--- NOTE | 2023-06-03 13:11 | DR.PROGNOT ---
HOSPITAL PROGRESS NOTE Progress Note for Day of: Progress Note Date: 06/03/23 Chief Complaint Chief Complaint: no new c/o . moderate drainage from abscess site . more fistula drainage now in colostomy bag .. WBC , BUN ,Creat . LFT all normal . afebrile .. Dressing and packing were removed and replaced with a new packing. The cellulitis had significantly improved with residual large area of deep induration just right to the incision. The midline fistula tract is still draining moderate amount. Past Medical Family Social History Allergies: Allergies adhesive tape Allergy (Verified 05/31/23 14:51) latex Allergy (Verified 05/31/23 14:51) lorazepam [From Ativan] Allergy (Verified 05/31/23 14:51) Vital Signs Vital Signs: Vital Signs Temperature 97.4 F Temperature 98.6 F Pulse Rate [Right Brachial] 73 Pulse Rate [Right Brachial] 93 Respiratory Rate 20 Respiratory Rate 16 Blood Pressure [Left Arm] 116/68 Blood Pressure [Left Arm] 107/66 O2 Sat by Pulse Oximetry 95 O2 Sat by Pulse Oximetry 95 Physical Exam Oriented: Normal Eyes: Normal Throat: Normal Respiratory: Normal Cardiovascular: Normal GI:Auscultation: Normal GI:Palpation: Normal GI: Tenderness: Other (soft,flat none tender abdomen , BS+) Skin: Other (Abscess site right lower quadrant is as above with less cellulitis.) Speech Pattern: Clear and Appropriate Laboratory and Diagnostics 06/03/23 05:37 06/03/23 05:37 Labs: 06/01/23 09:18 Abdomen Wound Gram Stain - Final 06/01/23 09:18 Abdomen Wound Culture - Preliminary Escherichia Coli Methicillin Resis Staph Aureus 06/01/23 11:14 Abdomen Wound Gram Stain - Final 06/01/23 11:14 Abdomen Wound Culture - Preliminary Methicillin Resis Staph Aureus Laboratory WBC 5.9 X10^3/uL (3.6-10.0) 06/03/23 05:37 RBC 4.14 X10^6/uL (4.7-6.0) L 06/03/23 05:37 Hgb 12.1 g/dL (13.5-18.0) L 06/03/23 05:37 Hct 36.7 % (42.0-54.0) L 06/03/23 05:37 MCV 88.8 fL (80.0-100.0) 06/03/23 05:37 MCH 29.2 pg (27.0-34.0) 06/03/23 05:37 MCHC 32.8 g/dL (33.0-35.0) L 06/03/23 05:37 RDW 15.3 % (11.6-16.5) 06/03/23 05:37 Plt Count 462 X10^3/uL (150.0-450.0) H 06/03/23 05:37 MPV 8.3 fL (7.4-11.0) 06/03/23 05:37 Neut % (Auto) 52.0 % (42.0-75.0) 06/03/23 05:37 Lymph % (Auto) 26.2 % (21.0-51.0) 06/03/23 05:37 [place] % (Auto) 11.1 % (0.0-13.0) 06/03/23 05:37 Eos % (Auto) 9.1 % (0.9-2.9) H 06/03/23 05:37 Baso % (Auto) 1.6 % (0.2-1.0) H 06/03/23 05:37 Neut # (Auto) 3.1 x10^3/uL (2.2-4.8) 06/03/23 05:37 Lymph # (Auto) 1.5 X10^3/uL (1.3-2.9) 06/03/23 05:37 [place] # (Auto) 0.7 x10^3/uL (0.3-0.8) 06/03/23 05:37 Eos # (Auto) 0.5 x10^3/uL (0.0-0.2) H 06/03/23 05:37 Baso # (Auto) 0.1 X10^3/uL (0.0-0.1) 06/03/23 05:37 Absolute Nucleated RBC 0.1 /100WBC 06/03/23 05:37 Sodium 143 mmol/L (136-145) 06/03/23 05:37 Corrected Sodium TNP 06/03/23 05:37 Potassium 4.0 mmol/L (3.5-5.1) 06/03/23 05:37 Chloride 106 mmol/L (98-107) 06/03/23 05:37 Carbon Dioxide 30.7 mmol/L (21-32) 06/03/23 05:37 BUN 14 mg/dL (7-18) 06/03/23 05:37 Creatinine 1.01 mg/dL (0.70-1.30) 06/03/23 05:37 Est GFR (MDRD) Af Amer > 60 (>60) 06/03/23 05:37 Est GFR (MDRD) Non-Af > 60 (>60) 06/03/23 05:37 Glucose 95 mg/dL (65-99) 06/03/23 05:37 Calcium 8.3 mg/dL (8.5-10.1) L 06/03/23 05:37 Corrected Calcium 10.1 mg/dL (8.5-10.1) 06/03/23 05:37 Magnesium 2.1 mg/dL (2.0-2.9) 06/03/23 05:37 Total Bilirubin 0.20 mg/dL (0.2-1.0) 06/03/23 05:37 AST 22 Units/L (15-37) 06/03/23 05:37 ALT 17 Units/L (12-78) 06/03/23 05:37 Alkaline Phosphatase 105 Units/L (46-116) 06/03/23 05:37 Total Protein 7.5 g/dL (6.4-8.2) 06/03/23 05:37 Albumin 1.7 g/dL (3.4-5.0) L 06/03/23 05:37 Globulin 5.8 g/dL (2.5-4.5) H 06/03/23 05:37 Albumin/Globulin Ratio 0.3 Ratio (1.1-2.1) L 06/03/23 05:37 Assessment and Plan 1: abdominal wall abscess , positive for MRSA on IV ABT vancomycin and local care, .. 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 3: large incisional hernia . 5: morbid obesity .
[2023-06-03] MEDS: TYGACIL 50 MG VIAL 50 MG in NS 100 ML IV 100 ML IV SCH (22:48)
[2023-06-04] MEDS: LOVENOX INJ 40 MG SYR SC SCH (08:53)
--- NOTE | 2023-06-04 10:30 | PCM.PROG ---
Progress Note Progress Note for Day of Date of Exam: 06/04/23 Subjective Subjective: The patient is sitting up in the chair this morning. He states he is going home today, no matter what. I told him that we would like to get the CT scan of his abdomen and pelvis this morning and he is willing to do that. Case management and the charge nurse are aware of this today. Will try to get this expedited soon as we can just see what her results show. In the meantime, we will keep him n.p.o. until we can get the CT scan approved and get it done today. Currently the patient has no new problems or complaints today. He reports his pain is fairly well-controlled. Past Medical Family Social History Allergies: Allergies adhesive tape Allergy (Verified 05/31/23 14:51) latex Allergy (Verified 05/31/23 14:51) lorazepam [From Ativan] Allergy (Verified 05/31/23 14:51) Review of Systems ROS: No change since H&P Vital Signs and I&O's Vital Signs: Vital Signs Temperature 97.0 F Temperature 98.4 F Pulse Rate [Right Brachial] 91 Pulse Rate [Right Brachial] 104 Respiratory Rate 19 Respiratory Rate 20 Blood Pressure [Right Arm] 122/72 Blood Pressure [Right Arm] 127/84 O2 Sat by Pulse Oximetry 96 O2 Sat by Pulse Oximetry 97 Intake and Output: Intake & Output 06/01/23 06/02/23 06/03/23 06/04/23 11:59 11:59 11:59 11:59 Intake Total 1470 / 1470 4168 / 4168 2341 / 2341 3349 / 3349 Output Total 2009 / 2069 475 / 475 2089 Balance -540 / -540 2097 / 2097 1866 / 1866 1259 / 1259 Physical Exam Oriented: Normal Eyes: Normal Throat: Normal Respiratory: Normal Cardiovascular: Normal Auscultation: Bowel Sounds: Normal Tenderness: Other (soft,flat none tender abdomen , BS+) Skin: Other (Abscess site right lower quadrant is as above with less cellulitis.) Speech Pattern: Clear and Appropriate Laboratory and Diagnostics 06/03/23 05:37 06/03/23 05:37 Labs: 06/01/23 09:18 Abdomen Wound Gram Stain - Final 06/01/23 09:18 Abdomen Wound Culture - Preliminary Escherichia Coli Methicillin Resis Staph Aureus 06/01/23 11:14 Abdomen Wound Gram Stain - Final 06/01/23 11:14 Abdomen Wound Culture - Preliminary Methicillin Resis Staph Aureus Laboratory WBC 5.9 X10^3/uL (3.6-10.0) 06/03/23 05:37 RBC 4.14 X10^6/uL (4.7-6.0) L 06/03/23 05:37 Hgb 12.1 g/dL (13.5-18.0) L 06/03/23 05:37 Hct 36.7 % (42.0-54.0) L 06/03/23 05:37 MCV 88.8 fL (80.0-100.0) 06/03/23 05:37 MCH 29.2 pg (27.0-34.0) 06/03/23 05:37 MCHC 32.8 g/dL (33.0-35.0) L 06/03/23 05:37 RDW 15.3 % (11.6-16.5) 06/03/23 05:37 Plt Count 462 X10^3/uL (150.0-450.0) H 06/03/23 05:37 MPV 8.3 fL (7.4-11.0) 06/03/23 05:37 Neut % (Auto) 52.0 % (42.0-75.0) 06/03/23 05:37 Lymph % (Auto) 26.2 % (21.0-51.0) 06/03/23 05:37 Davison % (Auto) 11.1 % (0.0-13.0) 06/03/23 05:37 Eos % (Auto) 9.1 % (0.9-2.9) H 06/03/23 05:37 Baso % (Auto) 1.6 % (0.2-1.0) H 06/03/23 05:37 Neut # (Auto) 3.1 x10^3/uL (2.2-4.8) 06/03/23 05:37 Lymph # (Auto) 1.5 X10^3/uL (1.3-2.9) 06/03/23 05:37 Davison # (Auto) 0.7 x10^3/uL (0.3-0.8) 06/03/23 05:37 Eos # (Auto) 0.5 x10^3/uL (0.0-0.2) H 06/03/23 05:37 Baso # (Auto) 0.1 X10^3/uL (0.0-0.1) 06/03/23 05:37 Absolute Nucleated RBC 0.1 /100WBC 06/03/23 05:37 Sodium 143 mmol/L (136-145) 06/03/23 05:37 Corrected Sodium TNP 06/03/23 05:37 Potassium 4.0 mmol/L (3.5-5.1) 06/03/23 05:37 Chloride 106 mmol/L (98-107) 06/03/23 05:37 Carbon Dioxide 30.7 mmol/L (21-32) 06/03/23 05:37 BUN 14 mg/dL (7-18) 06/03/23 05:37 Creatinine 1.01 mg/dL (0.70-1.30) 06/03/23 05:37 Est GFR (MDRD) Af Amer > 60 (>60) 06/03/23 05:37 Est GFR (MDRD) Non-Af > 60 (>60) 06/03/23 05:37 Glucose 95 mg/dL (65-99) 06/03/23 05:37 Calcium 8.3 mg/dL (8.5-10.1) L 06/03/23 05:37 Corrected Calcium 10.1 mg/dL (8.5-10.1) 06/03/23 05:37 Magnesium 2.1 mg/dL (2.0-2.9) 06/03/23 05:37 Total Bilirubin 0.20 mg/dL (0.2-1.0) 06/03/23 05:37 AST 22 Units/L (15-37) 06/03/23 05:37 ALT 17 Units/L (12-78) 06/03/23 05:37 Alkaline Phosphatase 105 Units/L (46-116) 06/03/23 05:37 Total Protein 7.5 g/dL (6.4-8.2) 06/03/23 05:37 Albumin 1.7 g/dL (3.4-5.0) L 06/03/23 05:37 Globulin 5.8 g/dL (2.5-4.5) H 06/03/23 05:37 Albumin/Globulin Ratio 0.3 Ratio (1.1-2.1) L 06/03/23 05:37 Plan (1) Abdominal wall abscess: Status: Acute Narrative Support Text: Anterior abdominal wall abscess secondary to MRSA Plan: Rechecking CT scan with IV contrast of the patient's abdomen/pelvis today. Follow-up with results later today. Continue IV antibiotics at this time. (2) Benign essential hypertension: Status: None Plan: The patient's blood pressure is stable at this time. He normally takes metoprolol succinate 25 mg daily 4. If he needs antihypertensives I will give him IV Lopressor. (3) Atrial fibrillation: Status: None Plan: We are holding patient's p.o. meds at this time. If needed we can give the patient IV Lopressor or IV diltiazem if needed for worsening A-fib.
--- NOTE | 2023-06-04 10:55 | CT ---
EXAM:CT abdomen and pelvis with IV contrastHISTORY:FISTULA TO LT ABD; abscess PMH: HX OF BLADDER/COLON CANCER, PT JUST FINISHED IMMUNOTHERAPY. PT HAS HX OF DVT/PE. -COMPARISON:CT 05/25/2023TECHNIQUE:Multiple axial images of the abdomen and pelvis were obtained from the lung bases to the pubic symphysis following the administration of IV contrast. Dose reduction techniques including Automated Exposure Control (AEC) and adjustment of mA and kV were utilized.FINDINGS:The visualized portions of the lung bases suggest mild atelectasis. There is chronic elevation of the left hemidiaphragm.There is fatty infiltration of the liver. Small areas of splenic tissue are seen in the left upper quadrant, unchanged.Gallbladder appears normal. No biliary ductal dilation.No pancreatic abnormality is seen.The adrenal glands appear normal.Right kidney appears malrotated. No hydronephrosis is seen. Phleboliths are seen in the pelvis. Ureters and bladder appear normal.There is eventration of the anterior abdominal wall inferiorly. Bowel is associated with this region. There is prior colon resection in the left side of the abdomen. No bowel obstruction is seen. Normal appendix is seen.Small bowel loops are closely associated with abnormal appearing anterior abdominal wall to the right of midline in the pelvic region. The abscess seen on prior study is much smaller and poorly defined. The does appear to be a persistent 2.7 x 1.7 cm abscess in this area of the anterior abdominal wall. There is adjacent subcutaneous and muscular edema with several dots of air or gas in this area. A fistula associated with the small bowel cannot be excluded but is not identified on this study.Prostate gland is normal in sizeAbdominal aorta is normal in size. IVC filter is seen below the renal veins. Stent is seen in the left external iliac vein.Enlarged right obturator lymph node is slightly increased from prior study but is probably reactive.No free intraperitoneal air or fluid is seen.No acute bony abnormality is seen.IMPRESSION:Possible persistent small abscess is seen in the anterior abdominal wall to the right of midline inferiorly. There is probable associated cellulitis in the musculature and subcutaneous soft tissues of the region. There are a few associated dots of air or gas.Small bowel loops are closely associated with the area of suspected cellulitis. A fistula to the small bowel is not identified but cannot be excluded on this study.THIS IS AN ELECTRONICALLY VERIFIED FINAL REPORT06/04/2023 10:51 AM - Electronically signed by Ajay Gilliam MD
[2023-06-04 12:28] VITALS: BP 133/98; PULSE 76; RESP 18; TEMP 97.7; O2SAT 98
[2023-06-04] MEDS ORDERED: PHARMACY COMMENT IV NR (20:00)
== END 2023-06-04 14:30 | disposition home health service (06) | DRG 603 ==
LOC: MED/SURG → OBSVTOIN 08:04
PROVIDERS: ADMIT Surgery; ATTEND Surgery
DX: I10 Essential (primary) hypertension; Z79.01 Long term (current) use of anticoagulants; B95.1 Streptococcus, group B, as the cause of diseases classified elsewhere; Z85.038 Personal history of other malignant neoplasm of large intestine; J44.9 Chronic obstructive pulmonary disease, unspecified; E66.01 Morbid (severe) obesity due to excess calories; K63.2 Fistula of intestine; K43.2 Incisional hernia without obstruction or gangrene; I25.10 Atherosclerotic heart disease of native coronary artery without angina pectoris; Z68.42 Body mass index [BMI] 45.0-49.9, adult; B96.29 Other Escherichia coli [E. coli] as the cause of diseases classified elsewhere; I48.91 Unspecified atrial fibrillation; L02.211 Cutaneous abscess of abdominal wall; B95.62 Methicillin resistant Staphylococcus aureus infection as the cause of diseases classified elsewhere